=== PATIENT | male | born 1990 | race Caucasian/White ===

== ENCOUNTER 2023-03-26 16:58 | Emergency (ER) | payer OTHER, SELFPAY ==
--- NOTE | ~2023-03-26 | XR_ITS ---
XR ankle LT min 3V DATE: 03/26/2023 17:22 INDICATION: Rolled left ankle 2 months ago. Lateral pain` TECHNIQUE: 4 views COMPARISON: None FINDINGS: Mild lateral soft tissue swelling. No fracture or dislocation of the ankle or disruption o f the ankle mortise. IMPRESSION: Mild lateral soft tissue swelling. No fracture or dislocation Reviewed, dictated and finalized at location L. [facility]
[2023-03-26 17:10] VITALS: BP 129/64; PULSE 80; RESP 16; TEMP 37.4; O2SAT 100
--- NOTE | 2023-03-26 17:23 | ED.LOWEXIN ---
HPI - Extremity Injury (Lower) General Chief Complaint: Extremity Injury, Lower Stated Complaint: left ankle injury Time Seen by Provider: 03/26/23 17:23 Source: patient, RN notes reviewed and old records reviewed Mode of arrival: ambulatory Limitations: no limitations History of Present Illness HPI Narrative: 33-year-old male presents to the [facility] with complaints of left ankle injury 2 months ago. Still having discomfort. Related Data Home Medications Medication Instructions Recorded Confirmed escitalopram oxalate 10 mg tablet mg 03/26/23 Allergies Allergy/AdvReac Type Severity Reaction Status Date / Time No Known Allergies Allergy Verified 03/26/23 17:09 Review of Systems Review of Systems: All systems reviewed & are unremarkable except as noted in HPI and below Constitutional: Constitutional: Reports no additional constitutional complaints Eyes: Eyes: Reports no additional eye complaints ENT: Reports system reviewed and no additional complaints, except as documented Cardiovascular: Cardiovascular: Reports no additional cardiovascular complaints, Denies chest pain and Denies dyspnea Respiratory: Respiratory: Reports no additional respiratory complaints, Denies chest congestion, Denies cough and Denies dyspnea Gastrointestinal: Gastrointestinal: Reports no additional gastrointestinal complaints, Denies abdominal pain, Denies nausea and Denies vomiting Musculoskeletal: Musculoskeletal: Reports as per HPI and Reports arthralgias (Left lateral ankle) Integumentary/Breasts: Skin/Breast: Reports system reviewed and no additional complaints, except as docu Neurologic: Reports system reviewed and no additional complaints, except as documented Psychiatric: Psychiatric: Reports no additional psychiatric complaints Allergic/Immunologic: Allergic/Immunologic: Reports no additional allergic/immunologic complaints PMFSH Comments At the time of my signature, I reviewed and agree with the nursing past medical, surgical, social, and family history. There is no relevant family history pertinent to the patient complaint. Exam Const: General: cooperative, healthy appearing, comfortable, no acute distress, well developed, alert and well nourished Nutritional Appearance: well nourished Orientation/consciousness: patient oriented x3 Limitations: no limitations HENMT: Head: normal to inspection Ears: hearing grossly normal bilaterally and external ears normal Face/Nose/Sinus: Normal external nose present, Normal nares present, Normal nasal mucous membranes and turbinates present, normal facial exam and face symmetric Face and sinus: normal facial exam and face symmetric Eyes: General: appearance normal, both eyes and all related structures Alignment and Position: alignment normal Periorbital: periorbital findings normal Pupils: Equal, round and reactive pupils present EOM: EOMs intact bilaterally Neck: Neck: normal visual inspection, full ROM, no lymphadenopathy and no meningeal signs Chest: Chest palpation & inspection: normal inspection of the chest Resp: Effort & Inspection: normal respiratory effort and able to speak in complete sentences Auscultation: clear to auscultation bilaterally, no crackles, no rales, no rhonchi and no wheezes Cardio: Rate: regular rate Rhythm: regular rhythm Back/Spine/Pelvis: Cervical Spine: cervical ROM normal Skin: General skin exam: normal color and no rashes or lesions noted Lesions: no lesions Rashes: no rashes Wounds: no wounds Neuro: General: patient oriented x3, gait normal, tone normal, moves all extremities and no meningeal signs Cranial nerves: Yes Equal, round and reactive pupils present Cognition (Neuro): normal cognition Speech: normal speech Gait exam (Neuro): Normal gait present Extrem: General: normal to inspection, full ROM, capillary refill normal and normal gait Left lower extremity: ankle Details: tenderness Location: of the lateral malleolus and nor
== END 2023-03-26 17:38 | disposition home or self-care (01) ==
PROVIDERS: Emergency Provider Nurse Practitioner
DX: S93.402A Sprain of unspecified ligament of left ankle, initial encounter (principal); S96.912A Strain of unspecified muscle and tendon at ankle and foot level, left foot, initial encounter; X50.9XXA Other and unspecified overexertion or strenuous movements or postures, initial encounter
CPT/HCPCS: 73610; 99213; G0463

== ENCOUNTER 2023-10-26 17:59 | Emergency (ER) | payer OTHER, SELFPAY ==
--- NOTE | ~2023-10-26 | XR_ITS ---
EXAM: XR abdomen/kub 1V DATE: 10/26/2023 18:39 HISTORY: back pain . COMPARISON: None available. FINDINGS: Clear lung bases. Normal bowel gas pattern. No organomegaly. No abnormal abdominal calcifi cation. Regional bones and soft tissues normal for age. IMPRESSION: Normal abdominal radiograph findings. Reviewed, dictated and finalized at location K.
[2023-10-26 18:04] VITALS: BP 126/66; PULSE 83; RESP 20; TEMP 36.7; O2SAT 99
--- NOTE | 2023-10-26 18:22 | ED.GENADULT ---
HPI - General Adult General Chief complaint: Back Pain/Injury Stated complaint: back pain Time Seen by Provider: 10/26/23 18:22 Source: patient Mode of arrival: ambulatory Limitations: no limitations History of Present Illness HPI narrative: 33-year-old male presents with complaint of low back pain with radiation to left buttock and down leg. Denies injury. Patient lays concrete for living. Ambulatory with steady gait. Took Advil today to treat pain. Reports worsening of pain when urinates. Denies urinary frequency, urgency, dysuria. All systems reviewed and negative except as noted above. Related Data Allergies Allergy/AdvReac Type Severity Reaction Status Date / Time No Known Allergies Allergy Verified 10/26/23 18:15 Review of Systems Review of Systems: CONSTITUTIONAL: Denies fever, chills, or sweats. EYES: Denies visual changes, redness, or discharge. ENT: Denies rhinorrhea, congestion, sore throat, or otalgia. CARDIOVASCULAR: Denies chest pain, palpitations, or edema. RESPIRATORY: Denies cough or dyspnea. GASTROINTESTINAL: Denies abdominal pain, nausea, vomiting, or diarrhea. GENITOURINARY: Denies dysuria or hematuria. SKIN: Denies rash or itching. MUSCULOSKELETAL: Reports low back pain with radiation to left buttock and down left leg. Denies joint pain, or myalgia. NEUROLOGIC: Denies headache, numbness, or weakness. PSYCHIATRIC: Denies anxiety or depression. All other systems reviewed are negative, except as documented in HPI. PMFSH Comments At time of signature, agree with nursing past medical, surgical, social and family history. There is no relevant family history pertinent to the presenting complaint. Exam Narrative: GENERAL: This is a well-nourished, well-developed patient, in no apparent distress. HEAD: normocephalic, atraumatic. EYES: PERRL. Sclera clear/white. Vision is grossly intact. EARS: External ears normal NOSE: External nose normal NECK: Neck supple, non-tender without lymphadenopathy, masses or thyromegaly. CARDIOVASCULAR: Regular rate and rhythm without murmurs, gallops, or rubs. RESPIRATORY: Clear to auscultation. Breath sounds equal bilaterally. No wheezes, rales, or rhonchi. SKIN: warm, Dry, intact with no suspicious lesions or rash, good texture and turgor. NEURO: awake, alert, and oriented to person, place and time. There were no obvious focal neurologic abnormalities. EXTREMITIES: No joint tenderness, effusion, or edema noted. No calf tenderness. Negative Homans sign bilaterally. BACK: No midline tenderness. No tenderness to SI joint. Negative straight leg raise. No CVA tenderness. Course Course Level of Care: Express Care Visit Vital Signs Vital signs: Vital Signs Temperature 36.7 C 10/26/23 18:04 Pulse Rate 83 10/26/23 18:04 Respiratory Rate 20 10/26/23 18:04 Blood Pressure 126/66 10/26/23 18:04 Pulse Oximetry 99 10/26/23 18:04 Oxygen Delivery Room Air 10/26/23 18:04 Temperature 36.7 C 10/26/23 18:04 Pulse Rate 83 10/26/23 18:04 Respiratory Rate 20 10/26/23 18:04 Blood Pressure 126/66 10/26/23 18:04 Pulse Oximetry 99 10/26/23 18:04 Oxygen Delivery Room Air 10/26/23 18:04 Reviewed Medical Decision Making MDM Narrative Medical decision making narrative: Patient is aware of diagnosis, understands and agrees to treatment plan. Anticipatory guidance given. Patient agrees to follow-up as directed and is aware of reasons to seek care at the emergency department. Portions of this record may have been created with voice recognition software KUB negative for kidney stones. Urinalysis is not concerning for urinary tract infection. Will prescribe and sad muscle relaxant and prednisone for sciatica. Patient instructed taking a sciatic-stretches. Refer to primary care physician. No neuro deficits. Patient well-appearing, nontoxic Vital Signs Vital Signs: Vital Signs Temperature 36.7 C 10/26/23 18:04 Pu
[2023-10-26 19:07] LABS: EDUAAPPEAR Clear; EDUABILI Negative; EDUABLOOD Trace; EDUACOLOR1 Yellow; EDUAGLUCOSE Negative; EDUAKETONE Negative; EDUALEUKO Negative; EDUANITRATE Negative; EDUAPROTEIN Negative; EDUAUROBILI 0.2
== END 2023-10-26 19:07 | disposition home or self-care (01) ==
PROVIDERS: Emergency Provider Nurse Practitioner Family
DX: M54.42 Lumbago with sciatica, left side (principal)
CPT/HCPCS: 74018; 81003; 99213; G0463

== ENCOUNTER 2024-04-13 16:56 | Emergency (ER) | payer OTHER, SELFPAY ==
[2024-04-13 17:06] VITALS: BP 143/82; PULSE 91; RESP 16; TEMP 36.7; O2SAT 100
--- NOTE | 2024-04-13 18:30 | ED_ITS ---
HPI - General Adult General Chief complaint: Eye Problems Stated complaint: Right Eye Injury/Head Injury Source: patient and family Mode of arrival: ambulatory Limitations: no limitations History of Present Illness HPI narrative: Patient presents for evaluation of right eye injury. Today he was at work when one of his coworkers accidentally kicked him in the right eye with his boot. He is not on blood thinners. No LOC. no vomiting since the episode. Denies any visual disturbance other than some photophobia. He has tearing from the right eye. He had a global headache that he rated 5/10 in severity earlier which has since improved to 2/10 after taking ibuprofen. He does not were glasses or contact lenses. Date of last tetanus greater than five years ago. Related Data Home Medications ?Medication ?Instructions ?Recorded ?Confirmed ?Last Taken ?Type escitalopram oxalate 10 mg tablet 15 mg PO DAILY 04/13/24 Unknown History Allergies Allergy/AdvReac Type Severity Reaction Status Date / Time No Known Allergies Allergy Verified 04/13/24 17:30 Review of Systems Review of Systems: CONSTITUTIONAL: Denies fever, chills, or sweats. EYES: Reports photophobia on the right with associated tearing. Denies other visual disturbance ENT: Denies rhinorrhea, congestion, sore throat, or otalgia. CARDIOVASCULAR: Denies chest pain, palpitations, or edema. RESPIRATORY: Denies cough or dyspnea. GASTROINTESTINAL: Denies abdominal pain, nausea, vomiting, or diarrhea. GENITOURINARY: Denies dysuria or hematuria. SKIN: Denies rash or itching. MUSCULOSKELETAL: Denies back pain, joint pain, or myalgia. NEUROLOGIC: Reports headache. Denies numbness, dizziness, or weakness. PSYCHIATRIC: Denies anxiety or depression. [facility] Past Medical History Medical History Depression Surgical History Surgical History No pertinent past surgical history Family History Family History Mother Family history non-contributory Social History Social History Substance use: never Living arrangements: with family Gender identity (if verbalized by the patient): Male Sexual Orientation (if Verbalized by the Patient): Straight or Heterosexual Spiritual care concerns: No Exam Narrative: GENERAL: Sitting in room with lights off. Well-appearing, well-nourished, and in no acute distress. HEAD: Normocephalic, atraumatic. EYES: There is an area of dye uptake noted in the right eye at the 1 o'clock position when evaluated with fluorescein and Wood's lamp evaluation. PERRLA and EOMI. ENT: Nares clear, no rhinorrhea or epistaxis. Mucous membranes moist. Oropharynx without tonsillar hypertrophy exudate or other lesions. Bilateral TMs pearly nathan nonbulging NECK: Supple. No adenopathy or masses. No carotid bruits or JVD CHEST: Clear to auscultation. No respiratory distress. No wheezes rales or rhonchi HEART: Regular rate and rhythm. No murmur heard. Normal peripheral pulses. ABDOMEN: Soft, nontender, nondistended, normal active bowel sounds. EXTREMITIES: Normal range of motion. No edema. SKIN: Warm, dry, no rash. NEURO: No focal deficits. Alert and oriented x3. PSYCH: Normal mood and affect. Course Course Emergency Course: This is a 34-year-old male who presented for evaluation of an eye injury that occurred around noon today. He does not meet criteria for neuro imaging. He does have a corneal abrasion present. Will treat with erythromycin. Continue ibuprofen or he may take tylenol as needed for pain. He should follow up with primary provider. He should go to the ER for worsening symptoms. Pt in agreement with plan of care. Level of Care: Express Care Visit Vital Signs Vital signs: Vital Signs Temperature 36.7 C 04/13/24 17:06 Pulse Rate 91 04/13/24 17:06 Respiratory Rate 16 04/13/24 17:06 Blood Pressure 143/82 H 04/13/24 17:06 Pulse Oximetry 100 04/13/24 17:06 Oxygen Delivery Room Air 04/13/24 17:06 Temperature 36.7 C 04/13/24 17:06 Pulse Rate 91 04/13/24 17:06 Respiratory Rate 16 04/13/24 17:06 Blood Pressure 143/82 H 04/13/24 17:06 Pulse Oximetry 100 04/13/24 17:06 Oxygen Delivery Room Air 04/13/24 17:06 Medical Decision Making Vital Signs Vital Signs: Vital Signs Temperature 36.7 C 04/13/24 17:06 Pulse Rate 91 04/13/24 17:06 Respiratory Rate 16 04/13/24 17:06 Blood Pressure 143/82 H 04/13/24 17:06 Pulse Oximetry 100 04/13/24 17:06 Oxygen Delivery Room Air 04/13/24 17:06 Temperature 36.7 C 04/13/24 17:06 Pulse Rate 91 04/13/24 17:06 Respiratory Rate 16 04/13/24 17:06 Blood Pressure 143/82 H 04/13/24 17:06 Pulse Oximetry 100 04/13/24 17:06 Oxygen Delivery Room Air 04/13/24 17:06 Discharge Plan Discharge Clinical Impression: Abrasion, corneal, Contusion of face Patient Disposition: Home, Self-Care Condition: Stable Instructions: Antibiotic Form, Corneal Abrasion (ED), Facial Contusion (ED) Additional Instructions: PLEASE FOLLOW UP WITH WORKMAN'S COMPENSATION PROVIDER TOMORROW YOU MAY TAKE TYLENOL OR IBUPROFEN FOR PAIN Patient Language: Faroese Prescriptions: New erythromycin 5 mg/gram (0.5 %) ointment 1 applic RIGHT EYE Q6H 7 Days Qty: 3.5 0RF No Action escitalopram oxalate 10 mg tablet 15 mg PO DAILY Follow-up/Referrals: Inna Gracia DO [Physician] - Stand Alone Forms: Work/School Release IP Time of Disposition: 18:29
[2024-04-13] MEDS: TETANUS,DIPHTHERIA,AC PERTUSSIS ADULT (0.5 ML) BOOSTRIX IM (18:36)
[2024-04-13] MEDS: BALANCED SALT SOLN OPHTH IRRIG 30 ML BTL 10 ML RIGHT EYE (18:46)
[2024-04-13] MEDS: FLUORESCEIN SOD 1 MG/STRIP RIGHT EYE (18:47)
[2024-04-13] MEDS: TETRACAINE HCL 0.5% OPHTH SOLN 4 ML BTL 1 DROP RIGHT EYE (18:47)
== END 2024-04-13 18:56 | disposition home or self-care (01) ==
PROVIDERS: Emergency Provider Nurse Practitioner
DX: S05.01XA Injury of conjunctiva and corneal abrasion without foreign body, right eye, initial encounter (principal); W50.0XXA Accidental hit or strike by another person, initial encounter; Y99.0 Civilian activity done for income or pay; Z23 Encounter for immunization
CPT/HCPCS: 90471; 90715; 99213; A9270; G0463